=== PATIENT | male | born 1985 | race Caucasian/White ===

== ENCOUNTER 2016-12-13 14:56 | Emergency (ER) | payer OTHER ==
[~2016-12-13] VITALS: Ht 180.3 cm; Wt 86.0 kg
[~2016-12-13 14:56] MED LIST: ANALPRAM HC TP; CIPRO500 MG PO; CRESTOR10 MG PO; DELZICOL400 MG PO; ELIQUIS5 MG PO; FLAGYL500 MG PO; FLORASTOR250 MG PO; HYDROCORT PR PR; K-DUR10 MEQ PO; LIBRIUM10 MG PO; MEN'S MULTI-VI1 EACH PO; MYCELEX10 MG MM; OMEPRAZOLE40 M1 PO; POTASSIUM CHLO10 ME4 PO; PRAMOSONE 1%28.4 G1 TP; PREDNISONE20 MG PO; PREDNISONE5 MG PO; PREDNISONE50 MG PO; PREPARATION H1 EAC2 TP; PROBIOTIC1 EAC1 PO; PROCTOFOAM15 GM TP; SOLU-CORTE100 MG/22 PO; THERAGRAN1 TABLET PO; UCERIS9 MG PO; Vancocin Oral Solution PO; XANAX0.5 MG PO; ZANTAC150 MG PO
[2016-12-13 15:22] VITALS: BP 153/81
[2016-12-13] MEDS ORDERED: BACTRIM,SEPT1 TABLET PO (18:04)
== END 2016-12-13 18:20 | disposition home or self-care (01) ==
LOC: EME 14:56
DX: L73.2 Hidradenitis suppurativa (principal); K51.90 Ulcerative colitis, unspecified, without complications; Z86.14 Personal history of Methicillin resistant Staphylococcus aureus infection; Z86.718 Personal history of other venous thrombosis and embolism; Z86.711 Personal history of pulmonary embolism; Z87.891 Personal history of nicotine dependence
CPT/HCPCS: 99281; 99284